=== PATIENT | male | born 1990 | race Caucasian/White ===

== ENCOUNTER 2020-05-24 09:39 | Emergency (ER) | payer OTHER ==
[~2020-05-24] VITALS: Ht 167.6 cm; Wt 54.4 kg
[~2020-05-24 09:39] MED LIST: BACTRIM DS TAB1 EACH PO; BACTROBAN15 GM TP; IBUPROFEN 800800 MG PO; KEFLEX500 M1 PO; LIDOCAINE VISC100 M1 MM; PENICILLIN VK500 MG PO; TRAMADOL 50 MG50 MG PO; ULTRAM50 MG PO
[2020-05-24 10:22] VITALS: BP 109/69
== END 2020-05-24 10:22 | disposition home or self-care (01) ==
LOC: M.ERS 09:39
DX: S61.230A Puncture wound without foreign body of right index finger without damage to nail, initial encounter (principal); W46.0XXA Contact with hypodermic needle, initial encounter; Y93.89 Activity, other specified; Y92.89 Other specified places as the place of occurrence of the external cause; Y99.0 Civilian activity done for income or pay